=== PATIENT | female | born 1940 | race Two or more races ===

== ENCOUNTER 2019-12-22 08:35 | Emergency (ER) | payer MEDICARE, OTHER ==
[~2019-12-22] VITALS: Ht 149.9 cm; Wt 89.4 kg
--- NOTE | 2019-12-22 09:10 | NUR ---
c/o left inguinal pain radiating to left thigh and knee, denies injury or trauma, 10/10 pain scale. PT AAOX3, VSS. RR EVEN & UNLABORED. DENIES CP, SOB, DIZZINESS, N/V/D. PT SEEN & EVAL'D BY DR. GARCIA & WILL CONT TO MONITOR.
[2019-12-22] MEDS ORDERED: HYDROCODONE/APAP 5/325MG 1 EACH TABLET ONE (09:12)
--- NOTE | 2019-12-22 09:16 | NUR ---
MEDICATED PER ERMD ORDER, PT DARNELL WELL.
[2019-12-22] MEDS ORDERED: HYDROCODONE/APAP 5/325MG 1 EACH TABLET PO ONE (09:30)
[2019-12-22] MEDS ORDERED: INSULIN REGULAR, HUMAN 100 UNIT in IV NS 0.9% 99 ML IV PRN ×2 (09:30)
--- NOTE | 2019-12-22 10:40 | NUR ---
CALLED BASHIR OLSON HYDROLOGIC ENGINEER PRACHI TO BE PAGED. WILL CALL BACK WHEN HE IS PAGED.
--- NOTE | 2019-12-22 13:48 | NUR ---
URINE COLLECTED AND SENT TO LAB
[2019-12-22 13:59] LABS: APPEARANCE,URINE Clear (CLEAR); BILIRUBIN,URINE Negative (NEGATIVE); BLOOD, URINE Negative Ery/uL (NEGATIVE); COLOR,URINE Yellow (YELLOW); KETONES,URINE Negative (NEGATIVE); LEUKOCYTE ESTERASE ,URINE Negative (NEGATIVE); NITRITE, URINE Negative (NEGATIVE); PH,URINE 5.5 (5.0-8.0); PROTEIN,URINE Negative (NEGATIVE); UGLUCOSE Negative (NEGATIVE); UROBILINOGEN,URINE 0.2 EU/dL (0.2)
[2019-12-22 14:42] VITALS: BP 110/52
--- NOTE | 2019-12-22 14:42 | NUR ---
Patient discharged to home in stable condition. Written and verbal after care instructions given. Patient and daughter verbalizes understanding of instruction.
== END 2019-12-22 14:43 | disposition home or self-care (01) ==
LOC: ER 08:35
DX: S32.592A Other specified fracture of left pubis, initial encounter for closed fracture (principal); M25.552 Pain in left hip; I10 Essential (primary) hypertension; X58.XXXA Exposure to other specified factors, initial encounter; Y93.89 Activity, other specified; Y92.89 Other specified places as the place of occurrence of the external cause; Y99.8 Other external cause status
CPT/HCPCS: 72192-TC; 73502; 81000-TC

== ENCOUNTER 2021-12-29 15:10 | Inpatient (IN) | payer MEDICARE, OTHER ==
[~2021-12-29] VITALS: Ht 165.1 cm; Wt 82.1 kg
[2021-12-29] MEDS: ATORVASTATIN 40 MG TABLET PO SCH (01:00)
--- NOTE | 2021-12-29 15:32 | NUR ---
IV LINE IS ESTABLISHED, BLOOD SPECIMEN COLLECTED AND SENT TO THE LAB. THE LINE IS SALINE LOCKED.
--- NOTE | 2021-12-29 15:34 | NUR ---
TELEMED REQUEST SENT, AWAITING NEUROLOGIST CALL BACK
--- NOTE | 2021-12-29 15:38 | NUR ---
NEUROLOGIST DR MOSELEY ELGIN
--- NOTE | 2021-12-29 15:41 | NUR ---
DR VICK SPEAKING WITH DR MOSELEY NEURO
[2021-12-29 15:42] LABS: BASOPHILS # (AUTO) 0.1 K/uL (0.0-0.2); BASOPHILS % (AUTO) 0.7 % (0.0-2.0); HEMATOCRIT 36 % (33-45); HEMOGLOBIN 11.8 g/dL (11.5-14.8); LYMPHOCYTES # (AUTO) 2.2 K/uL (0.8-4.8); LYMPHOCYTES % (AUTO) 22.2 % (20.0-44.0); MEAN CORPUSCULAR HGB CONC 33 g/dl (31.0-36.0); MEAN CORPUSCULAR VOLUME 89 fL (82-100); MONOCYTES # (AUTO) 0.7 K/uL (0.1-1.30); MONOCYTES % (AUTO) 7.5 % (2.0-12.0); NEUTROPHILS # (AUTO) 6.7 K/uL (1.8-8.9); NEUTROPHILS % (AUTO) 68.6 % (43.0-81.0); PLATELET COUNT (AUTO) 304 K/uL (150-450); RED BLOOD CELL COUNT(AUTO) 4.03 MIL/uL (4.0-5.2); WHITE BLOOD COUNT (AUTO) 9.7 K/uL (4.3-11.0)
--- NOTE | 2021-12-29 15:43 | NUR ---
Oksana smith in [facility] - 12/29/21 at [address] MOSELEY SPEAKING WITH DR MOSELEY NEURO
[2021-12-29 15:53] LABS: CALCIUM, SERUM 8.8 mg/dL (8.5-10.1); CARBON DIOXIDE 27 mmol/L (21-32); CHLORIDE 104 mmol/L (98-107); CREATININE 1.1 mg/dL (0.6-1.3); GLUCOSE 106 mg/dL (74-106); SODIUM SERUM 139 mmol/L (136-145); UREA NITROGEN, BLOOD 27 mg/dL (7-18)
[2021-12-29] MEDS ORDERED: ASPIRIN 300 MG/SUPP.RECT RC ONE ×2 (16:00→16:33)
[2021-12-29] MEDS ORDERED: FURO20TA4 PO (16:03)
[2021-12-29] MEDS ORDERED: METO50TA16 PO (16:03)
[2021-12-29] MEDS ORDERED: LISI-768 PO (16:03)
[2021-12-29] MEDS ORDERED: OMEP40CA21 PO (16:03)
[2021-12-29] MEDS ORDERED: ATOR80TA PO (16:03)
[2021-12-29] MEDS ORDERED: POTA-88 PO (16:03)
[2021-12-29] MEDS ORDERED: ASPI-869 PO (16:15)
--- NOTE | 2021-12-29 16:20 | NUR ---
MOVE SHEET SUBMITTED
--- NOTE | 2021-12-29 16:49 | NUR ---
COVID SWAB DONE AND SENT TO LAB
[2021-12-29] MEDS ORDERED: BLOOD SUGAR DIAGNOSTIC 1 EACH STRIP IN SCH (17:30)
[2021-12-29] MEDS ORDERED: hydrALAZINE HCL IV 20 MG VIAL IV PRN (17:30)
--- NOTE | 2021-12-29 18:29 | NUR ---
DEPUTY K 9 ETA 1 HOUR 30 MINS PER CUT OFF SAWYER ALEX.
--- NOTE | 2021-12-29 18:39 | NUR ---
US TECH AT BEDSIDE FOR ECHOCARDIOGRAM
--- NOTE | 2021-12-29 19:40 | NUR ---
RECEIVED PATIENT AWAKE. BRITISH SPEAKING WITH DAUGHTER CUTTER GRINDER OPERATOR. PATIENT IS CONFUSE. BILATERAL EYES AND HEAD IS TURNING TO RIGHT SIDE. RECEIVED WITH PERIPHERAL LINE ON RIGHT AC G18. PATIENT FOR ADMISSION DUE TO NSTEMI. VITALS BEING MONITORED.
--- NOTE | 2021-12-29 23:51 | NUR ---
REPORT GIVEN TO ROXANE COOK
--- NOTE | 2021-12-29 23:54 | NUR ---
FAMILY AWARE ABOUT PT RM NUMBER
[2021-12-30 00:30] VITALS: BP 154/80
[2021-12-30] MEDS: BLOOD SUGAR DIAGNOSTIC 1 EACH STRIP IN SCH ×4 (00:59→17:43)
[2021-12-30] MEDS: IV NS 0.9% 1,000 ML IV PRN (01:00)
[2021-12-30] MEDS: ENOXAPARIN SODIUM 40 MG/0.4 ML DISP.SYRIN SQ SCH ×2 (01:07→21:12)
--- NOTE | 2021-12-30 02:30 | NUR ---
RN NOTE 0019 ADMITTED PT WITH DIAGNOSIS OF STROKE. PT AWAKE, AO X 1-2 WITH SOME CONFUSION. PT DENIES ANY CHEST PAIN OR SOB. TOLERATES ROOM AIR. HOOKED TO TELE MONITOR, SR WITH HR OF 75. NIHSS ASSESSMENT DONE WITH SCORE OF 6. FSBS 100. IV ON LHAND PATENT AND INTACT, IVF NS STARTED ORDERED. ALL SAFETY MEASURES IN PLACE. WILL CONTINUE TO MONITOR.
[2021-12-30 04:00] VITALS: BP 136/45
[2021-12-30 07:16] LABS: BASOPHILS % (AUTO) 0.2 % (0.0-2.0); EOSINOPHILS % (AUTO) 1.9 % (0.0-6.0); HEMATOCRIT 32 % (33-45); HEMOGLOBIN 10.3 g/dL (11.5-14.8); LYMPHOCYTES # (AUTO) 2.3 K/uL (0.8-4.8); LYMPHOCYTES % (AUTO) 33.9 % (20.0-44.0); MEAN CORPUSCULAR HGB CONC 33 g/dl (31.0-36.0); MEAN CORPUSCULAR VOLUME 90 fL (82-100); MONOCYTES # (AUTO) 0.6 K/uL (0.1-1.30); MONOCYTES % (AUTO) 8.6 % (2.0-12.0); NEUTROPHILS # (AUTO) 3.7 K/uL (1.8-8.9); NEUTROPHILS % (AUTO) 55.4 % (43.0-81.0); PLATELET COUNT (AUTO) 240 K/uL (150-450); RED BLOOD CELL COUNT(AUTO) 3.54 MIL/uL (4.0-5.2); WHITE BLOOD COUNT (AUTO) 6.6 K/uL (4.3-11.0)
--- NOTE | 2021-12-30 07:30 | NUR ---
RN OPENING NOTE RECEIVED PT IN BED SLEEPING BUT EASILY AROUSABLE TO TOUCH AND SOUND. PT HAS NO S/S RESPIRATORY DISTRESS NOTED AT THIS TIME. ON DANDY OPERATOR SR WITH HR OF 74. IV ON LEFT HAND # 18 INFUSING WITH NS ORDERED. STILL ON NPO FOR BRAIN MRI WITH CONTRAST. FALL AND SAFETY PRECAUTIONS IN PLACE. WILL CONTINUE TO MONITOR PATIENT.
--- NOTE | 2021-12-30 07:30 | NUR ---
PT REFUSED BLOOD SUGAR
--- NOTE | 2021-12-30 07:30 | NUR ---
RN NOTE PT SLEEPING, AROUSES EASILY. NOT IN ANY DISTRESS. PT PORTUGUESE SPEAKING, NO SLURRED SPEECH NOTED.NO CHANGES IN LOC. REMAIN NPO. ASSISTED TO RESTROOM. CONTINUE ON IVFLUIDS NS AT 75ML/HR. ENDORSED TO LORRAINE FOR ROSHAN.
[2021-12-30 07:39] LABS: CALCIUM, SERUM 8.4 mg/dL (8.5-10.1); CARBON DIOXIDE 27 mmol/L (21-32); CHLORIDE 108 mmol/L (98-107); CREATININE 0.9 mg/dL (0.6-1.3); GLUCOSE 96 mg/dL (74-106); POTASSIUM 3.4 mmol/L (3.5-5.1); SODIUM SERUM 141 mmol/L (136-145); UREA NITROGEN, BLOOD 24 mg/dL (7-18)
[2021-12-30 07:54] LABS: CHOLESTEROL 135 mg/dL (<200); HDL CHOLESTEROL 51 mg/dL (40-60); LDL 67 mg/dL (0-99); THYROID STIMULATING HORMONE 3.173 uIU/mL (0.358-3.74); TRIGLYCERIDES 93 mg/dL (30-150)
[2021-12-30 08:00] VITALS: BP 148/64
[2021-12-30] MEDS: ASPIRIN EC 325 MG TABLET.DR PO SCH (08:48)
[2021-12-30] MEDS: PANTOPRAZOLE 40 MG VIAL IV SCH (08:48)
--- NOTE | 2021-12-30 09:50 | NUR ---
RN NOTES PATIENT SEEN BY SPEECH PATHOLOGIST FOR SWALLOW EVAL MAY HAVE SOFT DIET AND THIN LIQUIDS
[2021-12-30] MEDS ORDERED: POTASSIUM CHLORIDE 20 MEQ TAB.PRT.SR PO ONE (11:00)
[2021-12-30 12:00] VITALS: BP 143/57
[2021-12-30 16:00] VITALS: BP 135/46
--- NOTE | 2021-12-30 18:55 | NUR ---
RN CLOSING NOTE PATIENT IN BED, AWAKE, ALERT AND ORIENTED X3. PT HAS NO S/S RESPIRATORY DISTRESS NOTED DURING THE SHIFT. ON SOLE SPLITTER SR WITH HR OF 74. IV ON LEFT HAND # 18. FALL AND SAFETY PRECAUTIONS IN PLACE. WILL ENDORSE TO INCOMING NURSE FOR CONTINUOS MONITORING.
[2021-12-30 20:00] VITALS: BP 179/90
[2021-12-30] MEDS: ATORVASTATIN 40 MG TABLET PO SCH (21:09)
--- NOTE | 2021-12-30 21:29 | NUR ---
ENGINE TESTER OPENING NOTE PT RECEIVED IN BED, AWAKE, NOTED TO BE LAO-SPEAKING ONLY, &O X2, CONFUSED WITH ATTEMPTS OF GETTING OUT OF BED. PT ON RA WITH CURRENT O2SAT OF 94%, NO S/S OF RESP DISTRESS, NON-LABORED AND EQUAL BREATHING, NO SOB OR COUGH NOTED. ATTACHED TO EXTERNAL MONITOR, CURRENTLY ST WITH HR OF 131. IV ACCESS ON LEFT HAND 18G WITH NS RUNNIGN AT 75 ML/HR. BED IN LOWEST POSITION, CALL LIGHT WITHIN REACH, SIDE RAILS UP X3, BED ALARM ON. WILL CONTINUE TO MONITOR THROUGHOUT THE NIGHT.
[2021-12-31] VITALS: BP 164/80
[2021-12-31] MEDS: BLOOD SUGAR DIAGNOSTIC 1 EACH STRIP IN SCH ×4 (00:07→17:13)
[2021-12-31 04:00] VITALS: BP 168/85
[2021-12-31] MEDS: IV NS 0.9% 1,000 ML IV PRN ×2 (05:31→19:18)
[2021-12-31 06:39] LABS: BASOPHILS % (AUTO) 0.3 % (0.0-2.0); HEMATOCRIT 33 % (33-45); HEMOGLOBIN 10.8 g/dL (11.5-14.8); LYMPHOCYTES # (AUTO) 2.1 K/uL (0.8-4.8); LYMPHOCYTES % (AUTO) 32.7 % (20.0-44.0); MEAN CORPUSCULAR HGB CONC 33 g/dl (31.0-36.0); MEAN CORPUSCULAR VOLUME 90 fL (82-100); MONOCYTES # (AUTO) 0.6 K/uL (0.1-1.30); MONOCYTES % (AUTO) 9.2 % (2.0-12.0); NEUTROPHILS # (AUTO) 3.7 K/uL (1.8-8.9); NEUTROPHILS % (AUTO) 56.8 % (43.0-81.0); PLATELET COUNT (AUTO) 250 K/uL (150-450); RED BLOOD CELL COUNT(AUTO) 3.66 MIL/uL (4.0-5.2); WHITE BLOOD COUNT (AUTO) 6.5 K/uL (4.3-11.0)
--- NOTE | 2021-12-31 06:49 | NUR ---
AVIONICS SYSTEMS REPAIRER OPENING NOTE PT REMAINS IN BED, AWAKE, TAMAZIGHT-SPEAKING ONLY, &O X2, CONFUSED, HAD A FEW ATTEMPTS OF GETTING OUT OF BED. REMAINS ON RA WITH O2SAT RANGING FROM 94%-98%, NO S/S OF RESP DISTRESS, NON-LABORED AND EQUAL BREATHING, NO SOB OR COUGH NOTED. ATTACHED TO EXTERNAL MONITOR, NOTED TO HAVE BEEN SVT THAT CONVERTED TO AFIB AND RECENTLY CONVERTED TO SR, HR RANGED FROM 89-131. LEFT HAND 18G WITH NS RUNNING AT 75 ML/HR. BED IN LOWEST POSITION, CALL LIGHT WITHIN REACH, SIDE RAILS UP X3, BED ALARM ON. WILL ENDORSE TO DAYSHIFT NURSE TO CONTINUE CARE.
[2021-12-31 06:51] LABS: CALCIUM, SERUM 8.4 mg/dL (8.5-10.1); CARBON DIOXIDE 25 mmol/L (21-32); CHLORIDE 107 mmol/L (98-107); CREATININE 0.8 mg/dL (0.6-1.3); GLUCOSE 94 mg/dL (74-106); MAGNESIUM 2.2 mg/dL (1.8-2.4); PHOSPHORUS 3.6 mg/dL (2.5-4.9); POTASSIUM 3.7 mmol/L (3.5-5.1); SODIUM SERUM 141 mmol/L (136-145); UREA NITROGEN, BLOOD 16 mg/dL (7-18)
[2021-12-31 08:00] VITALS: BP 119/63
--- NOTE | 2021-12-31 09:00 | NUR ---
SPEECH THERAPIST AT BEDSIDE. ORDERED PT CAN HAVE PUREE AND LIQUID DIET.
[2021-12-31] MEDS: PANTOPRAZOLE 40 MG VIAL IV SCH (10:04)
[2021-12-31] MEDS: ASPIRIN EC 325 MG TABLET.DR PO SCH (10:05)
--- NOTE | 2021-12-31 11:02 | NUR ---
MD NOTIFIED THAT FAMILY WANTS TO SPEAK WITH PHYSICIAN, CHARGE NURSE AWARE.
[2021-12-31 12:00] VITALS: BP 119/63
[2021-12-31] MEDS: FUROSEMIDE 20 MG TABLET PO SCH (12:26)
[2021-12-31] MEDS: METOPROLOL TARTRATE 50 MG TABLET PO SCH ×2 (12:27→17:13)
--- NOTE | 2021-12-31 15:46 | NUR ---
CALLED RADIOLOGY TO INFORM THAT THE CARDIOLOGY REPORT SAVED ON IMAGING FILE IS THE ECHOCARDIOGRAM RESULT ORDERED BY .
[2021-12-31 16:00] VITALS: BP 145/76
[2021-12-31] MEDS: AMIODARONE HCL 200 MG TABLET PO SCH (17:15)
--- NOTE | 2021-12-31 19:00 | NUR ---
BIAS BINDING FOLDER CLOSING NOTE PT AWAKE IN BED, A/O X2. POLISH-SPEAKING ONLY, REMAINS ON RA WITH O2SAT 98%, NO S/S OF RESP DISTRESS, NON-LABORED AND EQUAL BREATHING, NO SOB OR COUGH NOTED. ATTACHED TO EXTERNAL MONITOR, NOTED TO HAVE BEEN ON SR, HR RANGED FROM 69-75. LEFT HAND 18G WITH NS INFUSING AT 75 ML/HR. BED IN LOWEST POSITION, CALL LIGHT WITHIN REACH, SIDE RAILS UP X3, BED ALARM ON. WILL ENDORSE TO NEXT SHIFT NURSE FOR CONTINUITY OF CARE.
[2021-12-31 20:00] VITALS: BP 161/66
[2021-12-31] MEDS: ATORVASTATIN 40 MG TABLET PO SCH (21:35)
[2021-12-31] MEDS: ENOXAPARIN SODIUM 80 MG/0.8 ML DISP.SYRIN SQ SCH (21:35)
[2022-01-01] VITALS: BP 160/85
[2022-01-01] MEDS: BLOOD SUGAR DIAGNOSTIC 1 EACH STRIP IN SCH ×4 (00:40→17:51)
--- NOTE | 2022-01-01 00:41 | NUR ---
RN NOTES: PT'S BLOOD SUGAR 90. NO S/S OF HYPER/HYPOGLYCEMIA. WILL CONTINUE TO MONITOR
[2022-01-01 04:00] VITALS: BP 154/61
--- NOTE | 2022-01-01 05:29 | NUR ---
RN NOTES: PT'S BLOOD SUGAR 85. NO S/S OF HYPER/HYPOGLYCEMIA. WILL CONTINUE TO MONITOR
--- NOTE | 2022-01-01 06:21 | NUR ---
RN CLOSING NOTES, PT IN BED SLEEPING BUT EASILY AROUSABLE, A/O X1, TAMAZIGHT SPEAKING ONLY. ON RA, O2 SAT 96%, BREATHING EVEN AND UNLABORED. IV ACCESS ON LEFT HAND #18G INTACT AND PATENT. NO S/S OF INFILTRATIONS. NS INFUSING AT 75 ML/HR. NO C/O PAIN OR DISCOMFORT. NO ACUTE DISTRESS. ALL DUE MEDS GIVEN ORDERED. ALL SAFETY MEASURES IN PLACE. BED IN LOWEST POSITION AND LOCKED. SIDE RAILS UP X3, BED ALARM ON. PLACE CALL LIGHT WITH IN REACH. WILL ENDORSE TO MORNING SHIFT NURSE.
--- NOTE | 2022-01-01 07:48 | NUR ---
RN OPENING NOTES, PT IN BED SLEEPING BUT EASILY AROUSABLE, A/O X1, YI SPEAKING ONLY. ON RA, O2 SAT 96%, BREATHING EVEN AND UNLABORED. IV ACCESS ON LEFT HAND #18G INTACT AND PATENT. NO S/S OF INFILTRATIONS. NS INFUSING AT 75 ML/HR. NO C/O PAIN OR DISCOMFORT. ALL SAFETY MEASURES IN PLACE. BED IN LOWEST POSITION AND LOCKED. SIDE RAILS UP X3, BED ALARM ON. PLACE CALL LIGHT WITH IN REACH. WILL CONTINUE PLAN OF CARE.
[2022-01-01] MEDS: IV NS 0.9% 1,000 ML IV PRN ×2 (07:55→21:01)
[2022-01-01 08:00] VITALS: BP 184/61
[2022-01-01] MEDS: PANTOPRAZOLE 40 MG TABLET.DR PO SCH ×2 (08:14→08:50)
[2022-01-01] MEDS: ASPIRIN EC 325 MG TABLET.DR PO SCH (08:51)
[2022-01-01] MEDS: AMIODARONE HCL 200 MG TABLET PO SCH ×2 (08:53→13:08)
[2022-01-01] MEDS: FUROSEMIDE 20 MG TABLET PO SCH (08:53)
[2022-01-01] MEDS: METOPROLOL TARTRATE 50 MG TABLET PO SCH ×2 (08:53→16:45)
[2022-01-01] MEDS: ENOXAPARIN SODIUM 80 MG/0.8 ML DISP.SYRIN SQ SCH ×2 (08:55→22:14)
[2022-01-01 12:00] VITALS: BP 172/80
[2022-01-01] MEDS: hydrALAZINE HCL 25 MG TABLET PO SCH ×2 (13:08→22:17)
[2022-01-01] MEDS ORDERED: AMIODARONE 150 MG in IV D5W 100 ML IV ONE (13:30)
--- NOTE | 2022-01-01 13:31 | NUR ---
PATIENT CHANGE TO AFIB/AFLUTTER WILL START ON IV AMIODARONE PER DR. GARCIA,AWAITS MEDS FROM [facility].
[2022-01-01] MEDS: AMIODARONE 450 MG in IV D5W 241 ML IV PRN ×2 (14:09→21:08)
[2022-01-01 16:00] VITALS: BP 157/72
--- NOTE | 2022-01-01 16:33 | NUR ---
Tito from ultrasound NOTIFIED to correct and update the ultrasound carotid doppler result SINCE SHOWS ECHO RESULT INSTEAD.
--- NOTE | 2022-01-01 18:26 | NUR ---
RN OPENING NOTES, PT IN BED SLEEPING BUT EASILY AROUSABLE, A/O X2, SLOVENIAN SPEAKING ONLY. ON RA, O2 SAT 9%, BREATHING EVEN AND UNLABORED. IV ACCESS ON LEFT HAND #18G INTACT AND PATENT. NO S/S OF INFILTRATIONS. NS INFUSING AT 75 ML/HR. NO C/O PAIN OR DISCOMFORT. ALL SAFETY MEASURES IN PLACE. BED IN LOWEST POSITION AND LOCKED. SIDE RAILS UP X3, BED ALARM ON. PLACE CALL LIGHT WITH IN REACH. WILL ENDORSE TO NEXT NURSE ON DUTY FOR CONTINUITY OF CARE.
--- NOTE | 2022-01-01 18:35 | NUR ---
PATIENT CONVERTED TO SR PER DR. GARCIA CONTINUE AMIODARONE DRIP ORDERED.
--- NOTE | 2022-01-01 19:34 | NUR ---
RN OPENING NOTES, PT IN BED SLEEPING BUT EASILY AROUSABLE, A/O X1, GE[place]GIAN SPEAKING ONLY. ON RA, O2 SAT 96%, BREATHING EVEN AND UNLABORED. IV ACCESS ON LEFT HAND #18G INTACT AND PATENT. NO S/S OF INFILTRATIONS. NS INFUSING AT 75 ML/HR. ON AMIODARONE DRIP 1MG/MIN, WILL DECREASE O.5 MG/MIN AT 2008. PT TOLERATED WELL. NO C/O PAIN OR DISCOMFORT. NO ACUTE DISTRESS. ALL SAFETY MEASURES IN PLACE. BED IN LOWEST POSITION AND LOCKED. SIDE RAILS UP X3, BED ALARM ON. PLACE CALL LIGHT WITH IN REACH. WILL CONTINUE TO MONITOR
[2022-01-01 20:00] VITALS: BP 169/74
[2022-01-01] MEDS: ATORVASTATIN 40 MG TABLET PO SCH (22:18)
--- NOTE | 2022-01-01 23:19 | NUR ---
RN NOTES: PT MOVED TO ROOM 117-2, CLOSER TO NURSING STATION. NOTED EPISODES OF AGITATION. PT KEPT REMOVING HER TELE BOX, REMOVED IV LINE FROM LT HAND. NEW SALINE LOCK INSERTED ON RT HAND #22G INTACT AND PATENT. NO S/S OF INFILTRATIONS. NOTIFIED NOLAN BRAND. NEW ORDER- BILATERAL WRIST ACUTE RESTRAINT AND MIDLINE INSERTION. ORDER NOTED AND CARRIED OUT.
[2022-01-02] VITALS: BP 162/79
[2022-01-02] MEDS: BLOOD SUGAR DIAGNOSTIC 1 EACH STRIP IN SCH ×3 (00:34→12:21)
--- NOTE | 2022-01-02 00:35 | NUR ---
RN NOTES: PT'S BLOOD SUGAR 105. NO COVERAGE NEEDED. NO S/S OF HYPER/HYPOGLYCEMIA. WILL CONTINUE TO MONITOR
[2022-01-02 04:00] VITALS: BP 176/83
[2022-01-02] MEDS: hydrALAZINE HCL 25 MG TABLET PO SCH ×2 (04:50→13:47)
--- NOTE | 2022-01-02 05:14 | NUR ---
RN NOTES: PT'S BLOOD SUGAR 99. NO COVERAGE NEEDED. NO S/S OF HYPER/HYPOGLYCEMIA. WILL CONTINUE TO MONITOR
--- NOTE | 2022-01-02 06:40 | NUR ---
RN CLOSING NOTES, PT IN BED SLEEPING BUT EASILY AROUSABLE, A/O X1, POLISH SPEAKING ONLY. ON RA, O2 AT 2L/MIN VIA N/C, O2 SAT 97%. BREATHING EVEN AND UNLABORED. IV ACCESS ON RT HAND #22G INTACT AND PATENT. NO S/S OF INFILTRATIONS. NS INFUSING AT 75 ML/HR. ON AMIODARONE DRIP 0.5MG/MIN. NO C/O PAIN OR DISCOMFORT. NO ACUTE DISTRESS. ALL DUE MEDS GIVEN ORDERED. ALL SAFETY MEASURES IN PLACE. BED IN LOWEST POSITION AND LOCKED. SIDE RAILS UP X3, BED ALARM ON. PLACE CALL LIGHT WITH IN REACH. WILL ENDORSE TO MORNING SHIFT NURSE.
--- NOTE | 2022-01-02 07:30 | NUR ---
RN OPENING NOTE PATIENT IS IN BED ASLEEP BUT EASILY AROUSABLE, ALERT, ORIENTED X 1 (PERSON). WITH O2 VIA NASAL CANNULA AT 2L/MIN. SINUS RHYTHM ON CLOTH NEUTRALIZER. WITH RIGHT HAND PERIPHERAL IV GAUGE 22 INFUSING WITH IV FLUID AT 75 CC/HR, AND AMIODARONE DRIP AT 0.5 MG/MIN. NO SIGNS OF INFILTRATION OR PHLEBITIS NOTED ON IV LINE. DENIES PAIN, BREATHING UNLABORED AND NOT IN ANY FORM OF DISTRESS. BED IS LOCKED IN LOWEST POSITION, 3 SIDE RAILS UP, CALL LIGHT WITHIN REACH. WILL CONTINUE TO MONITOR THROUGHOUT SHIFT.
[2022-01-02 08:00] VITALS: BP 170/79
[2022-01-02] MEDS ORDERED: AMIODARONE HCL 200 MG TABLET PO SCH (09:00)
[2022-01-02] MEDS: METOPROLOL TARTRATE 50 MG TABLET PO SCH (09:02)
[2022-01-02] MEDS: FUROSEMIDE 20 MG TABLET PO SCH (09:03)
[2022-01-02] MEDS: ASPIRIN EC 325 MG TABLET.DR PO SCH (09:03)
[2022-01-02] MEDS ORDERED: DABIGATRAN ETEXILATE MESYLATE 75 MG CAPSULE PO SCH (09:30)
[2022-01-02 12:26] VITALS: BP 148/70
[2022-01-02 13:47] VITALS: BP 148/70
--- NOTE | 2022-01-02 14:30 | NUR ---
RN NOTE PATIENT IS BEING PROCESSED FOR DISCHARGE TO [facility]. REPORT GIVEN TO MEGAN BETTS.
--- NOTE | 2022-01-02 15:35 | NUR ---
RN CLOSING NOTE PATIENT IS DISCHARGED TO [facility] IN STABLE CONDITION AND NOT IN ANY FORM OF DISTRESS. PATIENT WAS ACCOMPANIED BY PARAMEDICS. PRIOR TO LEAVING THE UNIT, ALL FORMS SIGNED. IV SALINE LOCK ON RIGHT HAND IS MAINTAINED PER REQUEST BY RECEIVING FACILITY.
== END 2022-01-02 15:30 | DRG 64 ==
LOC: ER 15:21 → TELE1 23:39 → TELE-TD 01-01 13:29 → TELE1 01-01 20:59 → TELE-TD 01-01 21:12
PROVIDERS: ADMIT Nurse Practitioner Acute Care; ATTEND Internal Medicine
DX: I63.512 Cerebral infarction due to unspecified occlusion or stenosis of left middle cerebral artery (principal); G93.41 Metabolic encephalopathy; R41.4 Neurologic neglect syndrome; Z86.73 Personal history of transient ischemic attack (TIA), and cerebral infarction without residual deficits; E66.9 Obesity, unspecified; Z68.30 Body mass index [BMI] 30.0-30.9, adult; I11.0 Hypertensive heart disease with heart failure; I50.9 Heart failure, unspecified; M81.0 Age-related osteoporosis without current pathological fracture; Z79.899 Other long term (current) drug therapy; Z96.653 Presence of artificial knee joint, bilateral; Z98.890 Other specified postprocedural states; Z79.82 Long term (current) use of aspirin; I25.10 Atherosclerotic heart disease of native coronary artery without angina pectoris; R13.10 Dysphagia, unspecified; E78.5 Hyperlipidemia, unspecified; Z68.31 Body mass index [BMI] 31.0-31.9, adult; R79.89 Other specified abnormal findings of blood chemistry; I48.0 Paroxysmal atrial fibrillation; G93.89 Other specified disorders of brain; Z87.42 Personal history of other diseases of the female genital tract; R29.706 NIHSS score 6; R29.810 Facial weakness
CPT/HCPCS: 36415; 70450-TC; 70551-TC; 71045-TC; 76856-TC; 80048-TC; 80061-TC; 82962-TC; 83735-TC; 83880; 84100-TC; 84443-TC; 84484-TC; 85025-TC; 85730-TC; 86304; 92526; 92611-TC; 93307-TC; 93880-TC; 94799-TC; 97110-TC; 97112-TC; 97116-TC; 97530-TC; C9113; C9803; G0378; J0282; J0360; J1650; J7030; J7060